=== PATIENT | female | born 1950 | race Caucasian/White ===

== ENCOUNTER → 2017-01-05 | Outpatient (CLI) | payer MEDICAID ==
[~2017-01-05] MED LIST: ADULT TUSS100 MG/5 M PO; ALBUTEROL2.5 MG/3 M IH; ATIVAN-DPS0.5 MG PO; ATROVENT SOLN.2.5 ML IH; DALIRESP500 MCG PO; DELTASONE DPS10 MG PO; DUONEB DPS3 ML IH; HABITROL DPS21 MG PO; HABITROL DPS7 MG TD; LEVAQUIN DPS750 MG PO; LOPRESSOR DPS50 MG PO; LOVENOX DP40 MG/0.4 SQ; MAALOX DPS30 ML PO; MAG-OX400 MG PO; METOPROLOL TART25 MG PO; MUCOMYST 20% DP30 ML PO; NORVASC5 MG PO; OLANZAPINE20 MG PO; PEPCID DPS20 MG PO; PROTONIX40 MG PO; PROVENTIL2.5 MG/0.5 IH; ROBAFEN100 MG/5 M PO; SF56 GM TP; SURFAK DPS240 MG PO; SYMBICORT160 MCG/6 IH; TYLENOL DP650 MG/20. PO; TYLENOL DPS325 MG PO; VIBRAMYCIN-DPS100 M2 PO; ZESTRIL DPS20 MG PO
== END | disposition home or self-care (01) ==
LOC: PTH.S 09:30
DX: Z51.81 Encounter for therapeutic drug level monitoring (principal); Z79.899 Other long term (current) drug therapy